=== PATIENT | female | born 1975 | race Caucasian/White ===

== ENCOUNTER 2016-11-02 17:38 | Emergency (ER) | payer OTHER ==
[2016-11-02] MEDS ORDERED: ASPIRIN 81 MG TABLET, CHEWABLE PO ONE (17:42)
--- NOTE | 2016-11-02 17:43 | ER Document Report ---
ED Medical Screen (RME) - General Stated Complaint: CHEST PAIN Mode of Arrival: Ambulatory Information source: Patient Notes: Patient presents to the emergency department with left-sided chest pain. Patient reports history of ablation. [place] [facility] [place] [facility] was on her way back to [place] when she stopped to shop. She started having chest pain. I greeted and performed a rapid initial assessment of this patient. Comprehensive ED assessment and evaluation of the patient, analysis of test results and completion of the medical decision making process will be conducted by additional ED providers.
[2016-11-02] MEDS ORDERED: ONDANSETRON HCL INJ/PF 4 MG/2 ML SDV IV ONE (18:44)
[2016-11-02] MEDS ORDERED: NORMAL SALINE 1000 ML 1,000 ML IV PRN (18:44)
--- NOTE | 2016-11-02 18:47 | ER Document Report ---
ED GI/ - General Chief Complaint: Chest Pain Stated Complaint: CHEST PAIN Time seen by provider: 18:44 Mode of Arrival: Ambulatory Information source: Patient - HPI Patient complains to provider of: Abdominal pain, Vomiting Onset: This morning Timing/Duration: Gradual, Persistent Quality of pain: Achy, Cramping Severity at maximum: Moderate Severity in ED: Moderate Pain Level: 3 Location: Other - Diffuse Associated symptoms: Lightheaded, Nausea, Vomiting Exacerbated by: Denies Relieved by: Denies Similar symptoms previously: Yes Recently seen / treated by doctor: Yes Notes: 11/02/16 18:45 Patient is a 41-year-old female with multiple medical problems including chronic anemia, stomach ulcers, multiple previous sinus surgeries, cardiac ablation, presenting to the emergency room complaining of lightheadedness, nausea, hot flashes, crampy abdominal pain radiating up into the chest that started earlier today, around 1 PM patient had an infusion of Venofer for her anemia which she gets on a monthly basis, she has never had a reaction to this infusion previously, but does report that she was not feeling well prior to the infusion, states she hasn't been eating or drinking much over the last 24 hours due to feeling nauseated, and also reports that it took the nurses 3 sticks to get an IV in because she appeared dehydrated, patient did have one episode of vomiting on the way to the emergency room, she does report her symptoms have improved moderately since being in the ER, she continues to have diffuse crampy abdominal pain which is actually quite chronic in nature, and continues to feel nauseated but her chest pain has resolved, she denies any shortness of breath, no cough, cold or congestion, no fever Past Medical History - General Information source: Patient - Social History Smoking Status: Never Smoker Chew tobacco use (# tins/day): No Frequency of alcohol use: Social Drug Abuse: None Family History: Reviewed & Not Pertinent Patient has suicidal ideation: No Patient has homicidal ideation: No Renal/ Medical History: Denies: Hx Peritoneal Dialysis Review of Systems - Review of Systems Constitutional: Other - Hot flashes EENT: No symptoms reported Cardiovascular: Chest pain, Lightheaded Respiratory: No symptoms reported. denies: Short of breath Gastrointestinal: See HPI Genitourinary: No symptoms reported Female Genitourinary: No symptoms reported Musculoskeletal: No symptoms reported Skin: No symptoms reported Hematologic/Lymphatic: No symptoms reported Neurological/Psychological: No symptoms reported -: Yes All other systems reviewed and negative Physical Exam - Vital signs Vitals: Temp Pulse Resp BP Pulse Ox 98.1 F 96 17 138/86 H 100 11/02/16 17:42 11/02/16 17:42 11/02/16 17:42 11/02/16 17:42 11/02/16 17:42 Interpretation: Normal - General General appearance: Appears well, Alert - HEENT Head: Normocephalic, Atraumatic Eyes: Normal Pupils: PERRL - Respiratory Respiratory status: No respiratory distress Chest status: Nontender Breath sounds: Normal Chest palpation: Normal - Cardiovascular Rhythm: Regular Heart sounds: Normal auscultation Murmur: No - Abdominal Inspection: Normal Distension: No distension Bowel sounds: Normal Tenderness: Nontender Organomegaly: No organomegaly - Back Back: Normal, Nontender - Extremities General upper extremity: Normal inspection, Nontender, Normal color, Normal ROM , Normal temperature General lower extremity: Normal inspection, Nontender, Normal color, Normal ROM , Normal temperature, Normal weight bearing. No: Cordell's sign - Neurological Neuro grossly intact: Yes Cognition: Normal Orientation: AAOx4 Bear Coma Scale Eye Opening: Spontaneous Bear Coma Scale Verbal: Oriented Bear Coma Scale Motor: Obeys Commands Bear Coma Scale Total: 15 Speech: Normal Motor strength normal: LUE, RUE, LLE, RLE Sensory: Normal - Psychological Associated symptoms: Normal affect, Normal mood - Skin Skin Temperature: Warm Skin Moisture: Dry Skin Color: Normal Course - Re-evaluation Re-evalutation: 11/02/16 22:10 Patient reports feeling much better, lab and imaging findings were discussed with her at bedside which are relatively unremarkable, patient states she has Zofran at home which she will use if her nausea returns, she was advised to follow-up with her primary care provider or return if symptoms worsen, patient acknowledges understanding and agreement with this plan - Vital Signs Vital signs: Temp Pulse Resp BP Pulse Ox 98.1 F 96 17 138/86 H 100 11/02/16 17:42 11/02/16 17:42 11/02/16 17:42 11/02/16 17:42 11/02/16 17:42 - Laboratory Result Diagrams: 11/02/16 20:56 11/02/16 20:56 Laboratory results interpreted by me: 11/02/16 20:56 MCV 77 L MCH 25.1 L RDW 21.5 H - Diagnostic Test Radiology reviewed: Image reviewed, Reports reviewed - EKG Interpretation by Me EKG shows normal: Sinus rhythm Rate: Normal Rhythm: NSR Discharge - Discharge Clinical Impression: Abdominal pain Qualifiers: Abdominal location: epigastric Qualified Code(s): R10.13 - Epigastric pain Nausea and vomiting Qualifiers: Vomiting type: unspecified Vomiting Intractability: non-intractable Qualified Code(s): R11.2 - Nausea with vomiting, unspecified Condition: Stable Disposition: HOME, SELF-CARE Instructions: Abdominal Pain ([facility]), Chest Pain of Unclear Cause ([facility]), Vomiting ([facility]) Additional Instructions: Follow up with your primary care provider in one to 2 days. Return to the emergency room immediately if symptoms worsen or any additional concerns.
[2016-11-02 21:14] LABS: ABSOLUTE BASOPHILS # (AUTO) 0.1 10^3/uL (0.0-0.2); ABSOLUTE EOSINOPHILS # (AUTO) 0.1 10^3/uL (0.0-0.6); ABSOLUTE LYMPHOCYTES (AUTO) 1.8 10^3/uL (0.5-4.7); ABSOLUTE MONOCYTES (AUTO) 0.5 10^3/uL (0.1-1.4); ABSOLUTE NEUT (AUTO) 5.3 10^3/uL (1.7-8.2); BASOPHILS % (AUTO) 0.7 % (0-2); EOSINOPHILS % (AUTO) 1.9 % (0-6); HEMATOCRIT 36.8 % (36.0-47.0); HGB HCT DIFFERENCE -0.8; LYMPHOCYTES % (AUTO) 22.6 % (13-45); MEAN CORPUSCULAR HEMOGLOBIN 25.1 pg (27.0-33.4); MEAN CORPUSCULAR HGB CONC 32.6 g/dL (32.0-36.0); MEAN CORPUSCULAR VOLUME 77 fl (80-97); MONOCYTES % (AUTO) 6.4 % (3-13); RED BLOOD COUNT 4.78 10^6/uL (3.72-5.28); RED CELL DISTRIBUTION WIDTH 21.5 % (11.5-14.0); SEGMENTED NEUTROPHILS % (AUTO) 68.4 % (42-78); WHITE BLOOD COUNT 7.8 10^3/uL (4.0-10.5)
[2016-11-02 21:33] LABS: ALANINE AMINOTRANSFERASE 31 U/L (9-52); ALBUMIN 4.5 g/dL (3.5-5.0); ALKALINE PHOSPHATASE 79 U/L (38-126); ANION GAP 14 (5-19); ASPARTATE AMINO TRANSFERASE 22 U/L (14-36); BILIRUBIN,TOTAL 0.7 mg/dL (0.2-1.3); BLOOD UREA NITROGEN 11 mg/dL (7-20); CALCIUM 9.9 mg/dL (8.4-10.2); CARBON DIOXIDE 25 mmol/L (22-30); CHLORIDE 102 mmol/L (98-107); CREATINE KINASE 63 U/L (30-135); CREATININE RESULT 0.56 mg/dL (0.52-1.25); GLUCOSE 87 mg/dL (75-110); LIPASE 80.6 U/L (23-300); POTASSIUM 3.6 mmol/L (3.6-5.0); TOTAL PROTEIN 7.5 g/dL (6.3-8.2)
[2016-11-02 21:48] LABS: TROPONIN I < 0.012 ng/mL
[2016-11-02] MEDS ORDERED: ASPIRIN 81 MG TABLET, CHEWABLE ONE (21:53)
[2016-11-02 22:49] VITALS: BP 112/72
--- NOTE | 2016-11-03 09:25 | EKG REPORT ---
SEVERITY:- ABNORMAL ECG - SINUS RHYTHM PROBABLE LEFT ATRIAL ABNORMALITY INCOMPLETE RIGHT BUNDLE BRANCH BLOCK : Confirmed by: Inna Dubon MD 03-Nov-2016 09:24:53
== END 2016-11-02 22:46 | disposition home or self-care (01) ==
LOC: ER 17:38
DX: R10.13 Epigastric pain (principal); R11.2 Nausea with vomiting, unspecified; R07.9 Chest pain, unspecified; R10.9 Unspecified abdominal pain; D64.9 Anemia, unspecified
CPT/HCPCS: 93005; 99284; 96361; 96374; 36415; 82553; 82550; 83690; 84703; 85025; 80053; 84484; 71010; 93010; J2405; J7030